=== PATIENT | female | born 1975 | race Caucasian/White ===

== ENCOUNTER → 2019-09-09 | Outpatient (CLI) | payer OTHER ==
--- NOTE | 2019-09-09 15:18 | Diagnostic Imaging Report ---
EXAMINATION: CHEST 2 VIEWS INDICATION: Chest pain COMPARISON: None FINDINGS: LINES/TUBES:None LUNGS:The lungs are well-inflated. No focal consolidation or pulmonary edema. PLEURA:No pleural effusion or pneumothorax. MEDIASTINUM:The cardiomediastinal silhouette appears normal in size and shape. BONES/SOFT TISSUES:No acute osseous injury. ABDOMEN:No free air under the diaphragm. IMPRESSION: No focal pneumonia or pulmonary edema. Signed by: Deep Hernandez MD on 09/09/2019 3:15 PM
== END ==
LOC: RAD 14:38
PROVIDERS: ATTEND Internal Medicine
DX: R07.9 Chest pain, unspecified (principal)
CPT/HCPCS: 71046

== ENCOUNTER → 2019-12-06 | Outpatient (CLI) | payer OTHER ==
--- NOTE | 2019-12-06 16:07 | Diagnostic Imaging Report ---
EXAM: US ABDOMEN COMPLETE DATE: 12/06/2019 3:36 PM INDICATION: Abdominal pain COMPARISON: None TECHNIQUE: Transverse and longitudinal iglesias scale and color doppler sonographic images of the upper abdomen were obtained. FINDINGS: LIVER 16.1 cm in the right midclavicular line. Increased echogenicity of the liver with normal contour, no masses. SPLEEN 13.0 cm in maximum diameter. Normal echogenicity, no masses. GALLBLADDER Multiple shadowing gallstones in the gallbladder. No gallbladder wall thickening, gallbladder distention, or pericholecystic fluid. Negative sonographic Rincon's sign. Gallbladder wall measures 2 mm. BILE DUCTS No intra nor extra-hepatic biliary dilation. Common bile duct measures 3mm PANCREAS: Visualized portions are normal. RIGHT KIDNEY: 13.8 cm Echogenicity: Normal Collecting System: No hydronephrosis Stones: None Cyst/Mass: None LEFT KIDNEY: 12.4 cm Echogenicity: Normal Collecting System: No hydronephrosis Stones: None Cyst/Mass: None VESSELS: Aorta: Visualized portions are within normal size limits Inferior Vena Cava: Visualized portions are normal Main Portal Vein: 0.8 cm, normal size with hepatopetal flow. FREE FLUID: None IMPRESSION: Cholelithiasis without sonographic evidence of cholecystitis. Hepatic steatosis. Signed by: Deep Hernandez MD on 12/06/2019 4:03 PM
== END ==
LOC: US 14:18
PROVIDERS: ATTEND Internal Medicine
DX: R10.9 Unspecified abdominal pain (principal); R14.0 Abdominal distension (gaseous)
CPT/HCPCS: 76700

== ENCOUNTER → 2020-05-09 | Outpatient (CLI) | payer OTHER | LOC: RAD 14:00 | PROVIDERS: ATTEND Internal Medicine | DX: R07.9 Chest pain, unspecified (principal) | CPT/HCPCS: 71046 ==

== ENCOUNTER 2024-04-06 08:38 | Emergency (ER) | payer OTHER ==
[~2024-04-06] VITALS: Ht 154.9 cm; Wt 100.2 kg
[~2024-04-06 08:38] MED LIST: PAXLOVID 300-11 EACH PO; PREDNISONE20 MG PO; VENTOLIN HFA18 GM INH
[2024-04-06 08:41] VITALS: TEMP 98.2
[2024-04-06 09:07] LABS: BASOPHILS # (AUTO) 0.1 (0.0-0.1); BASOPHILS % 0.5 % (0.0-1.0); EOSINOPHILS # (AUTO) 0.3 (0.0-0.4); EOSINOPHILS % 3.1 % (0.0-6.0); HEMATOCRIT 37.8 % (34.2-44.1); HEMOGLOBIN 12.4 g/dL (12.0-16.0); LYMPHOCYTES # (AUTO) 2.8 (1.0-3.2); LYMPHOCYTES % 29.7 % (18.0-39.1); MEAN CORPUSCULAR HEMOGLOBIN 26.8 pg (28-32); MEAN CORPUSCULAR HGB CONC 32.8 g/dL (31-35); MEAN CORPUSCULAR VOLUME 81.8 fL (81-99); MONOCYTES # (AUTO) 0.5 (0.2-0.8); MONOCYTES % 5.8 % (4.4-11.3); NEUTROPHILS # (AUTO) 5.6 (2.1-6.9); NEUTROPHILS % 60.4 % (38.7-80.0); PLATELET COUNT 351 x10e3/uL (140-360); RED BLOOD COUNT 4.62 x10e6/uL (3.6-5.1); RED CELL DISTRIBUTION WIDTH 12.9 % (11.7-14.4); WHITE BLOOD COUNT 9.29 x10e3/uL (4.8-10.8)
[2024-04-06] MEDS: DIAZEPAM INJ 5 MG/ML 2 ML IV ONE (09:09)
[2024-04-06] MEDS: SODIUM CHLORIDE 0.9% 1000ML 1,000 ML IV STA (09:10)
[2024-04-06] MEDS: ONDANSETRON HCL INJ 2MG/ML 2ML 2 MG/ML VIAL IV STA (09:10)
[2024-04-06 09:18] LABS: INR 0.82; PROTHROMBIN TIME 11.8 seconds (11.9-14.5)
[2024-04-06 09:19] LABS: PARTIAL THROMBOPLASTIN TIME 29.7 seconds (23.8-35.5)
[2024-04-06] MEDS: MECLIZINE HCL 12.5 MG TAB PO ONE (09:26)
[2024-04-06 09:37] LABS: ALANINE AMINOTRANSFERASE 50 IU/L (0-55); ALBUMIN 3.8 g/dL (3.5-5.0); ALBUMIN/GLOBULIN RATIO 1.2 (0.8-2.0); ALKALINE PHOSPHATASE 104 IU/L (40-150); BILIRUBIN,TOTAL 0.4 mg/dL (0.2-1.2); BLOOD UREA NITROGEN 10 mg/dL (7-26); BUN/CREATININE RATIO 16 (6-25); CALCIUM 8.7 mg/dL (8.4-10.2); CARBON DIOXIDE 24 mmol/L (22-29); CHLORIDE 103 mmol/L (98-107); CREATINE KINASE 45 IU/L (29-168); CREATININE, SERUM 0.63 mg/dL (0.57-1.11); EST GLOMERULAR FILTRATION RATE 109 ML/MIN (>=60); GLUCOSE 103 mg/dL (74-118); MAGNESIUM 1.9 MG/DL (1.3-2.1); SODIUM 137 mmol/L (136-145)
[2024-04-06 09:45] LABS: TROPONIN I < 0.001 ng/mL (0-0.300)
[2024-04-06 10:54] VITALS: PULSE 65; RESP 18; O2SAT 99
[2024-04-06] MEDS ORDERED: AMOX TR-K CLV1 EAC2 PO (11:40)
[2024-04-06] MEDS ORDERED: MECLIZINE HCL12.5 MG PO (11:40)
[2024-04-06] MEDS ORDERED: DICYCLOMINE HCL20 MG PO (11:40)
[2024-04-06] MEDS ORDERED: ONDANSETRON ODT4 MG PO (11:40)
[2024-04-06] MEDS ORDERED: IOPAMIDOL 370 MG/ML 100 ML INFUS..BTL INJ ONE (12:34)
== END 2024-04-06 11:54 | disposition home or self-care (01) ==
LOC: ER 08:40
DX: H81.10 Benign paroxysmal vertigo, unspecified ear (principal); K57.92 Diverticulitis of intestine, part unspecified, without perforation or abscess without bleeding; K80.20 Calculus of gallbladder without cholecystitis without obstruction; I10 Essential (primary) hypertension; R94.31 Abnormal electrocardiogram [ECG] [EKG]
CPT/HCPCS: 36415; 70450; 71045; 74177; 80053; 82550; 83735; 84484; 85025; 85610; 85730; 93005; 99284; J2405; J2470; J3360; J7030; J8597; Q9967